=== PATIENT | male | born 1990 | race American Indian/Alaskan Native ===

== ENCOUNTER 2021-07-29 09:00 | Emergency (ER) | payer SELFPAY ==
[2021-07-29 10:29] VITALS: BP 121/86
[2021-07-29 10:46] LABS: Bilirubin,Urine NEG (Negative); Blood,Urine NEG (Negative); Color,Urine Yellow (Yellow); Protein,Urine <15 mg/dL mg/dL (Negative)
--- NOTE | 2021-07-29 12:26 | Emergency Department Report ---
ED Male HPI - General Chief complaint: Urogenital-Male Stated complaint: POSS UTI Time Seen by Provider: 07/29/21 11:56 Source: patient Mode of arrival: Ambulatory Limitations: No Limitations - History of Present Illness Initial comments: Patient presents with dysuria and frequency along with dry scaly skin at the glans of the penis. Has had this before with a bacterial vaginosis infection. He has had no known current exposure, but he is sexually active and states that he does not use protection. Patient has no testicular pain. He has no disc harge. He has had no painful lesion. He does have a history of herpes he also request a refill of acyclovir as he has run out. He does not have hematuria or blood in his ejaculate. - Related Data Previous Rx's Medication Instructions Recorded Last Taken Type Acyclovir [Zovirax Tab] 800 mg PO Q12H #60 tab 07/29/21 Unknown Rx Doxycycline Monohydrate 100 mg PO BID #14 capsule 07/29/21 Unknown Rx [Doxycycline Monohydrate CAP] metroNIDAZOLE [Flagyl] 500 mg PO Q12HR #14 tab 07/29/21 Unknown Rx Allergies Allergy/AdvReac Type Severity Reaction Status Date / Time No Known Allergies Allergy Unverified 07/29/21 10:26 ED Review of Systems ROS: Stated complaint: POSS UTI Other details as noted in HPI Comment: All other systems reviewed and negative Constitutional: denies: fever Eyes: denies: vision change ENT: denies: epistaxis Respiratory: denies: cough Endocrine: denies: unexplained weight loss Gastrointestinal: denies: abdominal pain Genitourinary: as per HPI Musculoskeletal: denies: back pain Skin: as per HPI Hematological/Lymphatic: denies: easy bruising ED Past Medical Hx - Past Medical History Previous Medical History?: No - Family History Family history: no significant - Medications Home Medications: Home Medications Medication Instructions Recorded Confirmed Last Taken Type Acyclovir [Zovirax Tab] 800 mg PO Q12H #60 tab 07/29/21 Unknown Rx Doxycycline Monohydrate 100 mg PO BID #14 capsule 07/29/21 Unknown Rx [Doxycycline Monohydrate CAP] metroNIDAZOLE [Flagyl] 500 mg PO Q12HR #14 tab 07/29/21 Unknown Rx ED Physical Exam - General Limitations: No Limitations, Other (Pulse ox noted and normal) General appearance: alert, in no apparent distress - Head Head exam: Present: atraumatic, normocephalic - Eye Eye exam: Present: normal appearance, EOMI - ENT ENT exam: Present: normal external ear exam - Neck Neck exam: Present: normal inspection - Respiratory Respiratory exam: Absent: respiratory distress - Cardiovascular Cardiovascular Exam: Absent: JVD - GI/Abdominal GI/Abdominal exam: Present: soft. Absent: tenderness - exam: Present: normal inspection, vertical testicular lie. Absent: testicular tenderness, urethral discharge, scrotal swelling - Extremities Exam Extremities exam: Present: normal capillary refill - Back Exam Back exam: Absent: CVA tenderness (R), CVA tenderness (L) - Neurological Exam Neurological exam: Present: alert, oriented X3, normal gait. Absent: motor sensory deficit - Psychiatric Psychiatric exam: Present: normal affect, normal mood - Skin Skin exam: Present: warm, dry ED Course Vital Signs 07/29/21 10:27 Temperature 99.0 F Pulse Rate 66 Respiratory 15 Rate Blood Pressure 121/86 O2 Sat by Pulse 100 Oximetry - Reevaluation(s) Reevaluation #1: 07/29/21 14:09 UA was noted. Patient was discharged. ED Medical Decision Making - Medical Decision Making Patient presents with penile skin rash and a known history of bacterial vaginosis. He was treated empirically for BV as well as chlamydia. Patient does not have penile lesions suggestive of herpes infection at this time, but we did refill his acyclovir in addition. Patient does not have urinary tract infection peer there is no hematuria to suggest kidney stone. He has no glucose in the urine suggestive of new onset diabetes and there is no evidence of balanitis. Critical Care Time: No Critical care attestation.: If time is entered above; I have spent that time in minutes in the direct care of this critically ill patient, excluding procedure time. ED Disposition Clinical Impression: Urethritis Disposition: HOME / SELF CARE / HOMELESS Is pt being admited?: No Condition: Stable Additional Instructions: DRINK WATER. AVOID INTERCOURSE UNTIL SYMPTOMS RESOLVED. RETURN FOR PROBLEMS. Prescriptions: Doxycycline Monohydrate [Doxycycline Monohydrate CAP] 100 mg PO BID #14 capsule metroNIDAZOLE [Flagyl] 500 mg PO Q12HR #14 tab Acyclovir [Zovirax Tab] 800 mg PO Q12H #60 tab Referrals: PRIMARY CARE, [Primary Care Provider] - 3-5 Days Forms: STI Treatment and Prevention
== END 2021-07-29 14:39 | disposition home or self-care (01) ==
LOC: ED 09:00
DX: N34.2 Other urethritis (principal)
CPT/HCPCS: 81001; 99283